=== PATIENT | female | born 1970 | race Caucasian/White ===

== ENCOUNTER → 2021-06-30 | Day surgery (SDC) | payer BC ==
[~2021-06-30] VITALS: Ht 172.7 cm; Wt 135.0 kg
[~2021-06-30] MED LIST: IV RINGERS,LACTATED 1000ML 1,000 ML IV SCH; LEVO75TA5 PO; OMEP20CA16 PO; VERA240C2 PO
[2021-06-30 13:42] VITALS: BP 165/95
--- NOTE | 2021-06-30 15:10 | PDOC4 ---
PROCEDURE Procedure EGD/colonoscopy Indications: chronic HB, r/o Gonzalez's, H/o polyp, FH colon cancer. Meds: per anesthesia Findings: E--healed reflux at 40cm. No Gonzalez's. G--normal D--Normal to second portion. JARED normal. --'Scope advanced to cecum. Prep adequate. IH's on retroflex, otherwise normal exam. Swapnil. well. IMP: Healed refllux w/o Gonzalez's. IH's w/o polyps. REC: Resume meds, diet. Repeat colonoscopy 5 years. November f/u with us prn. RAMIRO GONZALES MD Jun 30, 2021 15:10
[2021-06-30 15:23] VITALS: BP 113/76
== END | disposition home or self-care (01) ==
LOC: SURG 13:25
PROVIDERS: ATTEND Internal Medicine Gastroenterology
DX: K92.1 Melena (principal); K64.0 First degree hemorrhoids; R12 Heartburn; K21.00 Gastro-esophageal reflux disease with esophagitis, without bleeding; K63.89 Other specified diseases of intestine; K31.89 Other diseases of stomach and duodenum; I48.91 Unspecified atrial fibrillation; G47.30 Sleep apnea, unspecified; E66.9 Obesity, unspecified; E03.9 Hypothyroidism, unspecified; Z79.899 Other long term (current) drug therapy; Z98.890 Other specified postprocedural states; Z90.49 Acquired absence of other specified parts of digestive tract; Z88.8 Allergy status to other drugs, medicaments and biological substances
CPT/HCPCS: 43235; 45378; 81025